=== PATIENT | male | born 1985 | race Caucasian/White ===

== ENCOUNTER → 2024-03-20 16:26 | Outpatient (REF) | payer BC, SELFPAY | LOC: RAD 16:26 | PROVIDERS: ATTENDING PHYSICIAN Physician Assistant Medical; FAMILY PHYSICIAN Nurse Practitioner Family | DX: K57.92 Diverticulitis of intestine, part unspecified, without perforation or abscess without bleeding (principal) | CPT/HCPCS: 74177; Q9967 ==

== ENCOUNTER 2025-01-15 20:05 | Emergency (ER) | payer BC, SELFPAY ==
[2025-01-15 20:07] VITALS: BP 175/98
[2025-01-15 21:32] VITALS: BMI 23.8
[2025-01-15 21:39] VITALS: BP 131/82
[2025-01-15 22:00] VITALS: BP 143/82
--- NOTE | 2025-01-15 23:07 | ED.GENMED ---
History of Present Illness
General
Chief Complaint: Dental Problem
Source: patient
Exam Limitations: none
Time Seen by Provider: 01/15/25 22:02
Nursing documentation reviewed up to this point in time: agreed with
History of Present Illness
History of Present Illness:
Note:
CHIEF COMPLAINT(S)
Cough and earache.
HISTORY OF PRESENT ILLNESS
The patient is a 39-year-old male who presents with a cough that started last Tuesday. He also reports bilateral ear pain, initially feeling it on one side and later shifting to the other side. The patient describes this sensation as feeling like
congestion and pressure rather than dental pain, although he noted some discomfort in the upper teeth. He has been managing the pain with Tylenol, which was initially effective but has become less so. The patient denies any past medical history of
significant issues beyond being told he has diverticulosis and irritable bowel syndrome, although he expresses uncertainty about these diagnoses as they seem to change. He has not been on any antibiotics and prefers to avoid them due to potential
gastrointestinal discomfort, preferring Tylenol instead. He reports no known allergies to amoxicillin or penicillin. The plan discussed includes starting an antibiotic and providing a steroid, but he opted to hold off on injections due to fear of
stomach upset.
CHRONIC MEDICAL CONDITIONS SIGNIFICANTLY AFFECTING CARE
- History of diverticulosis and irritable bowel syndrome, though the patient is unsure of these diagnoses.
ALLERGIES
No known drug allergies, specifically to amoxicillin or penicillin.
REVIEW OF SYSTEMS
- General: Denies past significant medical problems.
- Respiratory: Cough present.
- Ears: Bilateral ear pain, with shifting location.
- Gastrointestinal: History of diverticulosis and irritable bowel syndrome. Reports potential gastrointestinal discomfort with specific treatments.
- Dental: Reports discomfort in upper teeth correlating with ear pain but believes it to be secondary to congestion.
PHYSICAL EXAM
General: Alert, no acute distress.
Skin: Warm, dry.
Head: Normocephalic, atraumatic.
Neck: Supple, trachea midline.
Eye, Ears, Nose, Mouth, and Throat: Oral mucosa moist. Reports pressure sensation in the ears.
Cardiovascular: Normal peripheral perfusion, No edema.
Respiratory: Respirations are non-labored.
Gastrointestinal: Abdomen nondistended
Back: Normal range of motion, Normal alignment.
Musculoskeletal: Normal ROM, normal strength.
Neurological: Alert and oriented to person, place, time, and situation, No focal neurological deficit observed.
Psychiatric: Cooperative, appropriate mood & affect.
PLAN
- Initiate antibiotics, with Amoxicillin as the preferred option.
- Consider introduction of a steroid to manage inflammation.
- Patient expressed preference for continued use of Tylenol for pain management rather than injections due to concerns about potential gastrointestinal side effects.
- Monitor symptoms and reassess as necessary.
DIFFERENTIAL DIAGNOSIS
The Differential Diagnosis includes, in no particular order and is not limited to:
- Sinusitis
- Ear infection (Otitis Media)
- Dental abscess or related dental issue
- Viral upper respiratory infection
- Allergic rhinitis
- Temporomandibular joint disorder
- Gastroesophageal reflux disease potentially affecting throat and ear discomfort
- Tension headache with referred pain to ears
- Menieres disease
Disposition:
SUMMARY OF ENCOUNTER
The patient, a 39-year-old male, presented with bilateral ear pain, sinus pressure, and potential sinusitis. 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 The
patient refused a dental block with bupivacaine. A prescription for antibiotics was considered due to poor dentition and suspected sinusitis.
DISPOSITION
Discharge.
ASSESSMENT
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
EMERGENCY TREATMENTS ADMINISTERED
Patient received a dose of dexamethasone.
PLAN
Begin a course of antibiotics to address suspected sinusitis and poor dentition. Encourage follow-up with the dentist for dental issues, as the patient already has a dental provider.
PATIENT EDUCATION AND COUNSELING
The patient was advised on the importance of following up with his dentist for maintenance and management of his chronic dental issues and completing the prescribed antibiotic course.
FOLLOW-UP INSTRUCTIONS
Follow up with the dentist to manage dental issues. Monitor symptoms, and seek further medical consultation if symptoms persist or worsen.
MEDICATION RECONCILIATION
Dexamethasone was administered in the emergency department. A prescription for antibiotics was provided.
MEDICAL DECISION MAKING
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 Differential Diagnosis includes sinusitis, ear infection (otitis media), dental-related issues.
- Category 1: Emergency department records reviewed. Prescription for antibiotics was provided due to potential sinusitis and poor dentition.
DIAGNOSIS
- Sinusitis (J01.90)
- Dental disorder (K08.89)
Past History
Past History
ED Past Medical History: Other (colitis, sinusitis, migraines, Lyme's disease)
ED Past Surgical History: Orthopedic, Tonsilectomy, Urological (Vasectomy) and Other (Hernia repair)
Social History
Tobacco: Smoker
Alcohol: None
Drug: None
Personal: Single
Living: alone
Phy Exam
Physical Exam
Physical Exam:
.
Course
Orders/Labs/Results
Orders:
Orders
01/15/25 22:13
Bupivacaine HCl/Epinephrine [Marcaine 0.5% W/Epi [facility] [place]] 1 cartridge INJ OR ONE
01/15/25 23:01
Amoxicillin 875 mg/Clav 125 mg [Augmentin 875 mg/125 mg] 1 tablet PO NOW STA
01/15/25 23:05
Dexamethasone Pf [Decadron] 10 mg PO NOW STA
01/15/25 23:23
Acetaminophen [Tylenol] 1,000 mg PO NOW STA
Vital Signs
Initial and Last Documented VS:
Initial Vital Signs
Temp Pulse Resp BP Pulse Ox
98.4 F 71 16 175/98 100
01/15/25 20:07 01/15/25 20:07 01/15/25 20:07 01/15/25 20:07 01/15/25 20:07
Last Documented Vital Signs
Temp Pulse Resp BP Pulse Ox
98.4 F 60 16 126/79 98
01/15/25 20:07 01/15/25 23:16 01/15/25 23:19 01/15/25 23:16 01/15/25 23:10
*Pulse Oximetry
SaO2: 98
Oxygen Mode of Delivery: Room air
Patient hypoxic: no
*Critical Care Note
Total Time (30-74mins, 75-104mins- exclusive of procedures): Not Applicable
Update Note
Update Note:
Patient refused Decadron. He will still get the Augmentin.
ED Attending Note
-
Portions of this chart may have been created with voice recognition software.� Occasional wrong word or��sound alike� substitutions may have occurred due to the inherent limitations of voice recognition software.
Discharge Plan
Departure
Patient Disposition: Home (Routine Discharge)
Date of Disposition: 01/15/25
Time of Disposition: 23:23
Patient with high blood pressure during this ER visit?: Yes
Condition: Good
Discharge Problem:
Dentalgia, Sinusitis, Chronic tooth decay
Instructions: Fractured Tooth (DC), Dental Pain (DC), BLOOD PRESSURE
Prescriptions:
New
amoxicillin-pot clavulanate 875-125 mg tablet
1 tab PO BID Qty: 20 0RF
No Action
L.acidoph,paracasei,B.animalis 1 EACH capsule
1 ea PO DAILY
melatonin 10 MG capsule
10 mg PO HSPRN PRN (Reason: sleep)
ubrogepant [Ubrelvy] 100 MG tablet
100 mg PO PRN PRN (Reason: migraines)
cyclobenzaprine 10 MG tablet
10 mg PO TIDPRN PRN (Reason: neck pain) Qty: 12 0RF
metoprolol succinate [Toprol XL] 25 mg tablet extended release 24 hr
25 mg PO DAILY PRN (Reason: palpitations) Qty: 20 0RF
Referrals:
Patti Muñoz CRNP [Family Provider, Family Practice]
Activity Restrictions/Additional Instructions:
Thank You for choosing [facility].
It was a pleasure meeting you and taking part in your care. We hope for your continued healing and wellness.
Please read discharge instructions in their entirety. However, they are for general education and may not describe your exact diagnosis at discharge. Information on your ER visit and medical conditions were discussed with you along with appropriate
follow up information...
If indicated, please take your medications as instructed and indicated on discharge paperwork.
Please schedule a follow up appointment as directed. Call to schedule an appointment
Please return to the emergency department with ANY change in, persisting, or worsening of symptoms. If any of your symptoms do not improve, or persist, or become more severe within 6-12 hours, please return to the emergency department for further
care.
Please return to the emergency department if you develop a headache, neck pain/stiffness, fever greater than 100.4F, chest pain, shortness of breath, persistent nausea, vomiting, slurred speech, difficulty walking, numbness/tingling, weakness, signs
of infection or any other symptoms that are worrisome to you.
If you have any questions or concerns please do not hesitate to call the Hospital at .
Interventions
Interventions:
*Risk Screen - Suicide Last Done: 01/15/25 20:08
*General Assessment Last Done: 01/15/25 21:33
*Neglect/Abuse Screening Last Done: 01/15/25 20:08
*ED- Fall Risk Assessment Last Done: 01/15/25 21:33
*ED COVID-19 Vaccine History Last Done: 01/15/25 21:33
*ED Influenza Vaccine History Last Done: 01/15/25 21:33
Discharge Date and Time
Print Language: GUAMANIAN
[2025-01-15] MEDS: AUGMENTIN 875 MG/125 MG 1 TABLET PO (23:15)
[2025-01-15 23:16] VITALS: BP 126/79
[2025-01-15] MEDS: TYLENOL 1000 MG PO (23:30)
== END 2025-01-15 23:39 | disposition home or self-care (01) ==
LOC: EMR 20:05
PROVIDERS: EMERGENCY PHYSICIAN Student in an Organized Health Care Education/Training Program; FAMILY PHYSICIAN Nurse Practitioner Family
DX: K08.89 Other specified disorders of teeth and supporting structures (principal); J32.9 Chronic sinusitis, unspecified; K02.9 Dental caries, unspecified; R03.0 Elevated blood-pressure reading, without diagnosis of hypertension; K58.9 Irritable bowel syndrome, unspecified; F17.200 Nicotine dependence, unspecified, uncomplicated
CPT/HCPCS: 99283